=== PATIENT | female | born 1990 | race Hispanic/Latino ===

== ENCOUNTER 2023-06-28 08:56 | Day surgery (SDC) | payer OTHER ==
[2023-06-24 10:13] LABS: BASOPHILS # (AUTO) 0.07 K/uL (0.00-0.20); BASOPHILS % (AUTO) 0.8 % (0.0-5.0); EOSINOPHILS # (AUTO) 0.77 K/uL (0.00-0.70); EOSINOPHILS % (AUTO) 8.4 % (0.0-8.0); HEMATOCRIT 41.9 % (36-48); IMMATURE GRANULOCYTE ABSOLUTE 0.04 K/uL (0-1); LYMPHOCYTES # (AUTO) 3.2 K/uL (1.0-4.8); LYMPHOCYTES % (AUTO) 34.8 % (21.0-51.0); MEAN CORPUSCULAR HEMOGLOBIN 29.1 pg (27.0-33.0); MEAN CORPUSCULAR HGB CONC 31.5 g/dL (32.0-36.0); MEAN CORPUSCULAR VOLUME 92.5 fL (79-99); MONOCYTES # (AUTO) 0.6 K/uL (0.1-1.0); MONOCYTES % (AUTO) 6.3 % (3.0-13.0); NEUTROPHILS # (AUTO) 4.5 K/uL (1.8-7.7); NEUTROPHILS % (AUTO) 49.3 % (40.0-77.0); PLATELET COUNT (AUTO) 239 K/uL (130-400); RED BLOOD CELL COUNT(AUTO) 4.53 MIL/uL (4.00-5.50); RED CELL DISTRIBUTION WIDTH 14.9 % (11.0-15.5); WHITE BLOOD COUNT (AUTO) 9.1 K/uL (4.8-10.8)
[2023-06-24 10:15] VITALS: BP 135/59; PULSE 84; RESP 18
[2023-06-24 10:26] LABS: INR <= 0.93 (0.85-1.15); PROTHROMBIN TIME 10.4 SEC (9.6-11.6)
[2023-06-24 10:27] LABS: PARTIAL THROMBOPLASTIN TIME 31.9 SEC (26.3-35.5)
[2023-06-24 10:41] LABS: APPEARANCE,URINE CLEAR (CLEAR); BILIRUBIN,URINE NEGATIVE (NEGATIVE); COLOR,URINE LIGHT-YELLOW (YELLOW); GLUCOSE, URINE (UA) NEGATIVE (NEGATIVE); KETONES,URINE NEGATIVE (NEGATIVE); LEUKOCYTE ESTERASE ,URINE NEGATIVE Leu/uL (NEGATIVE); NITRATE,URINE NEGATIVE (NEGATIVE); OCCULT BLOOD,URINE NEGATIVE (NEGATIVE); PROTEIN,URINE NEGATIVE (NEGATIVE); UROBILINOGEN,URINE 0.2 mg/dL (0.2-1.0)
[2023-06-24 10:44] LABS: ADD UA MICROSCOPIC NO
[~2023-06-28] VITALS: Ht 157.5 cm; Wt 138.3 kg
[2023-06-28] VITALS (21 sets, daily range): BP systolic 113–169; BP diastolic 73–114; PULSE 63–89; RESP 15–24
[~2023-06-28 08:56] MED LIST: ALBU90AE2 IH; MONT-39 PO
[2023-06-28] MEDS ORDERED: BUPIVACAINE/PF 0.25% 30ML VIAL IJ ONE (10:54)
[2023-06-28] MEDS: CEFAZOLIN SODIUM 2 GM VIAL ONE (10:58)
[2023-06-28] MEDS: LACTATED RINGERS 1000ML 1,000 ML IV ONE (10:59)
[2023-06-28] MEDS ORDERED: PHENYLEPHRINE HCL 10 MG/ML 1ML VIAL IV ONE (11:08)
[2023-06-28] MEDS ORDERED: ROCURONIUM BROMIDE 10MG/1ML 5ML VL ONE ×2 (11:11→12:42)
[2023-06-28] MEDS ORDERED: PROPOFOL 10 MG/ML 20ML VIAL IV ONE (11:13)
[2023-06-28] MEDS: INDOCYANINE GREEN 25 MG VIAL IJ ONE (11:40)
[2023-06-28] MEDS ORDERED: MIDAZOLAM HCL 1 MG/ML 2ML VIAL ONE (11:44)
[2023-06-28] MEDS ORDERED: FENTANYL CITRATE PF 50 MCG/1 ML 5ML AMP IV ONE (11:48)
[2023-06-28] MEDS: CEFAZOLIN SODIUM 3 GM VIAL IVPB ONE (12:00)
[2023-06-28] MEDS: BUPIVACAINE/PF 0.25% 30ML VIAL IJ ONE (12:30)
[2023-06-28] MEDS ORDERED: GLYCOPYRROLATE 0.2 MG/ML 5 ML VIAL ONE (13:19)
[2023-06-28] MEDS ORDERED: MEPERIDINE-PF 25 MG/ML SYG ONE (13:25)
[2023-06-28] MEDS ORDERED: ALBUTEROL INHALER 90MCG/INH IH ONE (13:26)
[2023-06-28] MEDS: KETOROLAC 30MG VIAL (30MG/ML) ONE (14:51)
[2023-06-28] MEDS: ONDANSETRON 4MG INJ ONE (14:51)
[2023-06-28] MEDS: ACETAMINOPHEN 1,000 MG/100 ML VIAL IV ONE (14:52)
[2023-06-28] MEDS: HYDRALAZINE 20MG/ML VIAL ONE (14:55)
== END 2023-06-28 16:35 | disposition home or self-care (01) ==
LOC: DAH 08:56
PROVIDERS: ATTEND Student in an Organized Health Care Education/Training Program
DX: K80.12 Calculus of gallbladder with acute and chronic cholecystitis without obstruction (principal); K42.0 Umbilical hernia with obstruction, without gangrene; J45.909 Unspecified asthma, uncomplicated; E66.01 Morbid (severe) obesity due to excess calories; Z79.01 Long term (current) use of anticoagulants; Z98.890 Other specified postprocedural states; Z98.51 Tubal ligation status; Z82.49 Family history of ischemic heart disease and other diseases of the circulatory system; Z83.3 Family history of diabetes mellitus; Z80.51 Family history of malignant neoplasm of kidney; Z80.9 Family history of malignant neoplasm, unspecified; Z87.891 Personal history of nicotine dependence; Z68.43 Body mass index [BMI] 50.0-59.9, adult
CPT/HCPCS: 47563; S2900; 36415; 74330; 81003; 81025; 84703; 85025; 85610; 85730; 88304; J0360; J0690; J1885; J2175; J2250; J2371; J2405; J2704; J3010; J3490; J7120; A4215; A4221; A4222; A4223; A4335; A4600; A4649; A4663; A4930; A6260; C1769; G0168; J0665